=== PATIENT | male | born 1970 | race Two or more races ===

== ENCOUNTER 2024-01-09 09:04 | Emergency (ER) | payer OTHER ==
[~2024-01-09] VITALS: Ht 167.6 cm; Wt 90.6 kg
[2024-01-09 12:00] VITALS: PULSE 78; RESP 21; O2SAT 100
[2024-01-09 16:30] VITALS: BP 131/76; PULSE 74; RESP 15; TEMP 98; O2SAT 99
== END 2024-01-09 16:45 | disposition short-term general hospital (02) ==
LOC: ER 09:04
DX: S22.41XA Multiple fractures of ribs, right side, initial encounter for closed fracture (principal); S27.0XXA Traumatic pneumothorax, initial encounter; W11.XXXA Fall on and from ladder, initial encounter; Y93.89 Activity, other specified; Y92.89 Other specified places as the place of occurrence of the external cause; Y99.8 Other external cause status
CPT/HCPCS: 71101